=== PATIENT | female | born 1980 | race Caucasian/White ===

== ENCOUNTER 2020-10-26 16:16 | Emergency (ER) | payer OTHER, SELFPAY ==
--- NOTE | ~2020-10-26 | XR_ITS ---
XR hand RT min 3V DATE: 10/26/2020 17:48 INDICATION: Fall, right hand injury, pain TECHNIQUE: 3 views COMPARISON: None FINDINGS: Comminuted intra-articular fracture of the distal radius. 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 IMPRESSION: Comminuted intra-articular fracture distal radius Reviewed, dictated and finalized at location A.
--- NOTE | ~2020-10-26 | XR_ITS ---
XR hip RT 2V w AP pelvis DATE: 10/26/2020 17:49 INDICATION: Pelvic and right hip pain following fall TECHNIQUE: AP pelvis. AP and lateral views right hip COMPARISON: None FINDINGS: Displaced fractures of the right superior and inferior pubic rami. The pubic symphysis and sacroiliac joints appear intact. No pelvic bone destruction. No fracture or dislocation of the right hip. IMPRESSION: Displaced fractures of right superior and inferior pubic rami Reviewed, dictated and finalized at location A.
--- NOTE | ~2020-10-26 | XR_ITS ---
XR wrist RT min 3V DATE: 10/26/2020 17:48 INDICATION: Right wrist injury, pain TECHNIQUE: 4 views COMPARISON: None FINDINGS: There is a comminuted intra-articular fracture of the distal radius with no significant dis placement or angulation. Radiocarpal alignment is preserved. No other recent fracture or dislocation is detected. IMPRESSION: Comminuted intra-articular fracture distal radius Reviewed, dictated and finalized at location A.
[2020-10-26 16:19] VITALS: BP 123/95; PULSE 79; RESP 16; TEMP 36.2; O2SAT 97
--- NOTE | 2020-10-26 17:25 | ED.GENADULT ---
HPI - General Adult General Chief complaint: Extremity Injury, Upper Stated complaint: arm injury Time Seen by Provider: 10/26/20 16:28 Source: patient Mode of arrival: wheelchair Limitations: no limitations History of Present Illness HPI narrative: Patient presents for evaluation after experiencing a fall 2 nights ago. She indicates she was standing on a chair when the chair broke. She fell the ground but is unsure what part of her body she landed on. She is confident that she did not hit her head. No loss of consciousness. She has since experienced pain in the right forearm, right wrist, right hand, right buttock. Pain in the right forearm is 2 out of 10 in severity, right wrist is a 6 out of 10 in right hand is 4 out of 10. She denies any paresthesias. She has been using Tylenol and ibuprofen which seemed to help reduce her pain. She has also been applying ice to the affected areas, which also seems to help. She has had increased pain in right buttock with weight bearing to RLE. She is right-hand dominant. Related Data Allergies Allergy/AdvReac Type Severity Reaction Status Date / Time No Known Allergies Allergy Mild Verified 10/26/20 16:18 Review of Systems Review of Systems: Narrative: CONSTITUTIONAL: Denies fever, chills, or sweats. EYES: Denies visual changes, redness, or discharge. ENT: Denies rhinorrhea, congestion, sore throat, or otalgia. CARDIOVASCULAR: Denies chest pain, palpitations, or edema. RESPIRATORY: Denies cough or dyspnea. GASTROINTESTINAL: Denies abdominal pain, nausea, vomiting, or diarrhea. GENITOURINARY: Denies dysuria or hematuria. SKIN: Reports bruising to the right hand. Denies rash or itching. MUSCULOSKELETAL: Reports pain in the right forearm, wrist, hand, right buttock. Denies pain otherwise NEUROLOGIC: Denies headache, numbness, dizziness, or weakness. PSYCHIATRIC: Denies anxiety or depression. [facility] Past Medical History Medical History Tobacco use Surgical History Surgical History No pertinent past surgical history Family History Family History Mother No pertinent past medical history Father No pertinent past medical history Social History Social History Smoking packs per day: 1 Smoking cigarettes per day: 20.0 Smoking status: Current every day smoker Tobacco type: cigarettes Substance use: current Substance use type: marijuana Other substance usage details: Daily marijuana use Living arrangements: with family Gender identity (if verbalized by the patient): Female Sexual Orientation (if Verbalized by the Patient): Straight or Heterosexual Spiritual care concerns: No Exam Narrative: Exam Narrative: GENERAL: Well-appearing, well-nourished, and in no acute distress. HEAD: Normocephalic, atraumatic. EYES: PERRLA and EOMI. ENT: Nares clear, no rhinorrhea or epistaxis. Mucous membranes moist. Oropharynx without tonsillar hypertrophy exudate or other lesions. Bilateral TMs pearly erazo nonbulging NECK: Supple. No adenopathy or masses. No carotid bruits or JVD CHEST: Clear to auscultation. No respiratory distress. No wheezes rales or rhonchi HEART: Regular rate and rhythm. No murmur heard. Normal peripheral pulses. ABDOMEN: Soft, nontender, nondistended, normal active bowel sounds. EXTREMITIES: No tenderness in right forearm and no obvious deformity or swelling in that region. Tenderness noted in medial aspect of right wrist. Decreased ROM of right wrist with trace nonpitting edema noted. There is no obvious deformity. No crepitus. No tenderness in right hand. 3/5 hand stummel selector strength on right. No tenderness over the pelvis or right hip. SKIN: Ecchymosis noted to the dorsal aspect of the right hand. Warm, dry, no rash. NEURO: No focal deficits. Alert and oriented x3. PSY
--- NOTE | 2020-10-26 19:24 | PC.NURSE ---
[facility] endoscopy registered nurse in room putting splint on pt at this time
--- NOTE | 2020-10-26 19:32 | PC.NURSE ---
pt boyfriend came out to nurses station stating can i please talk to the doctor? not in front of my girlfriend because shes kind of freaking out. i just want to ask him some questions. this rn went to get md, they are currently talking in front of nurses station.
[2020-10-26 20:19] VITALS: BP 142/94; PULSE 94; RESP 20; O2SAT 100
== END 2020-10-26 20:06 | disposition home or self-care (01) ==
PROVIDERS: Emergency Provider Nurse Practitioner
DX: S52.571A Other intraarticular fracture of lower end of right radius, initial encounter for closed fracture (principal); S32.511A Fracture of superior rim of right pubis, initial encounter for closed fracture; S32.591A Other specified fracture of right pubis, initial encounter for closed fracture; F17.210 Nicotine dependence, cigarettes, uncomplicated; W07.XXXA Fall from chair, initial encounter
CPT/HCPCS: 29125; 73110; 73130; 73502; 99284; A4565